=== PATIENT | female | born 1940 | race Caucasian/White ===

== ENCOUNTER → 2022-10-11 | Outpatient (CLI) | payer MEDICARE, OTHER ==
[~2022-10-11] MED LIST: ASPI81TA85 PO; LABE300T PO; LISI5TAB PO; MAPA500T17 PO; NORV2TAB PO; Statin
[2022-10-11 17:18] LABS: HEMATOCRIT 30.4 % (36.0-47.0); HEMOGLOBIN 9.9 g/dl (12.0-15.5); MEAN CORPUSCULAR HEMOGLOBIN 36.3 pg (27.0-33.0); MEAN CORPUSCULAR HGB CONC 32.6 g/dl (32.0-36.5); MEAN CORPUSCULAR VOLUME 111.4 fl (80.0-96.0); PLATELET COUNT, AUTOMATED 246 10^3/uL (150-450); RED BLOOD COUNT 2.73 10^6/uL (4.00-5.40); WHITE BLOOD COUNT 5.2 10^3/uL (4.0-10.0)
[2022-10-11 17:41] LABS: ALBUMIN 4.2 G/DL (3.2-5.2); BILIRUBIN,TOTAL 0.7 MG/DL (0.3-1.2); CALCIUM LEVEL 9.9 MG/DL (8.3-10.6); CHOLESTEROL RISK RATIO 3.55 (<5); CREATININE FOR GFR 1.04 MG/DL (0.55-1.30); GLOMERULAR FILTRATION RATE 53.7 (>32); HDL CHOLESTEROL 57.6 MG/DL (>40); LDL CHOLESTEROL 128.8 MG/DL (<100); NON-HDL-C 147.4 MG/DL; POTASSIUM SERUM 4.5 MMOL/L (3.5-5.1); TOTAL PROTEIN 6.9 G/DL (5.7-8.2)
[2022-10-11 17:56] LABS: ATYPICAL LYMPH 2 % (0-5); BASOPHILS 1 % (0-1); LYMPHOCYTES 46 % (16-44); METAMYELOCYTES 1 % (0-0); MONOCYTES 9 % (0-5); MYELOCYTES 3 % (0-0); NEUTROPHILS 34 % (28-66); PLATELET ESTIMATE NORMAL (NORMAL)
== END ==
LOC: M WUC 11:43
PROVIDERS: ATTEND Family Medicine
DX: I10 Essential (primary) hypertension (principal)

== ENCOUNTER → 2023-01-22 | Outpatient (CLI) | payer MEDICARE, OTHER ==
[2023-01-22 09:40] LABS: HEMOGLOBIN 9.6 g/dl (12.0-15.5); MEAN CORPUSCULAR HEMOGLOBIN 36.4 pg (27.0-33.0); MEAN CORPUSCULAR HGB CONC 33.1 g/dl (32.0-36.5); MEAN CORPUSCULAR VOLUME 109.8 fl (80.0-96.0); PLATELET COUNT, AUTOMATED 286 10^3/uL (150-450); RED BLOOD COUNT 2.64 10^6/uL (4.00-5.40); WHITE BLOOD COUNT 5.4 10^3/uL (4.0-10.0)
[2023-01-22 10:05] LABS: PERCENT SATURATION 32.2 % (13.2-45.0)
[2023-01-22 10:07] LABS: FERRITIN 380.3 NG/ML (7.3-270.7); FOLATE 18.1 NG/ML (>5.4)
[2023-01-22 10:19] LABS: ATYPICAL LYMPH 16 % (0-5); BASOPHILS 4 % (0-1); EOSINOPHILS 2 % (0-3); LYMPHOCYTES 23 % (16-44); MONOCYTES 10 % (0-5); NEUTROPHILS 45 % (28-66); PLATELET ESTIMATE NORMAL (NORMAL)
== END ==
LOC: M WUC 08:26
PROVIDERS: ATTEND Family Medicine
DX: D64.9 Anemia, unspecified (principal)

== ENCOUNTER 2023-11-19 11:22 | Observation (INO) | payer MEDICARE ==
[~2023-11-19] VITALS: Ht 170.2 cm; Wt 56.8 kg
[2023-11-19] VITALS (16 sets, daily range): BP systolic 134–211; BP diastolic 59–99; TEMP 98.5; O2SAT 95–99
[~2023-11-19 11:22] MED LIST changes: +AMLO1TAB25 PO; +HYDR12CA PO; +LISI40TA4 PO; +MULT-40 PO; +PROBCAP14 PO
[2023-11-19] MEDS ORDERED: ONDA-83 PO (11:31)
[2023-11-19] MEDS ORDERED: OXYC1TAB23 PO (11:31)
[2023-11-19 12:03] LABS: VENOUS BASE EXCESS 0.1 (-2.0-2.0); VENOUS O2 SATURATION 80.8 % (60.0-80.0); VENOUS PARTIAL PRESSURE CO2 41.7 mmHg (38.0-50.0); VENOUS PARTIAL PRESSURE O2 46.3 mmHg (30.0-50.0); VENOUS PH 7.396 UNITS (7.330-7.430); VENOUS STANDARD HCO3 24.3 MMOL/L; VENOUS TOTAL CO2 26.3 MMOL/L (24.0-28.0)
[2023-11-19 12:29] LABS: HEMATOCRIT 29.1 % (36.0-47.0); HEMOGLOBIN 9.9 g/dl (12.0-15.5); MEAN CORPUSCULAR HEMOGLOBIN 34.4 pg (27.0-33.0); PLATELET COUNT, AUTOMATED 396 10^3/uL (150-450); RED BLOOD COUNT 2.88 10^6/uL (4.00-5.40); WHITE BLOOD COUNT 8.6 10^3/uL (4.0-10.0)
[2023-11-19 12:40] LABS: ALKALINE PHOSPHATASE 104 U/L (46-116); ALT/SGPT 23 U/L (7.0-40); AST/SGOT 20 U/L (<34); BILIRUBIN,DIRECT 0.2 MG/DL (<0.4); BILIRUBIN,TOTAL 0.6 MG/DL (0.3-1.2); BLOOD UREA NITROGEN 10 MG/DL (9-23); CALCIUM LEVEL 9.7 MG/DL (8.3-10.6); CARBON DIOXIDE LEVEL 25 MMOL/L (20-31); CHLORIDE LEVEL 106 MMOL/L (98-107); CREATININE FOR GFR 0.75 MG/DL (0.55-1.30); GLOMERULAR FILTRATION RATE > 60.0 (>32); GLUCOSE, FASTING 169 MG/DL (74-106); SODIUM LEVEL 137 MMOL/L (136-145); TOTAL PROTEIN 6.1 G/DL (5.7-8.2)
[2023-11-19 12:42] LABS: THYROID STIMULATING HORMONE 3.416 uIU/ML (0.55-4.78); THYROXINE (T4) 12.5 UG/DL (4.5-10.9)
[2023-11-19] MEDS ORDERED: LEVALBUTEROL 1.25MG 0.5ML CONCENTRATE NEB NEB PRN (12:45)
[2023-11-19] MEDS ORDERED: KETOROLAC 30 MG/ML 1ML VIAL IV PRN (12:45)
[2023-11-19] MEDS ORDERED: ACETAMINOPHEN 325 MG TAB PO PRN (12:45)
[2023-11-19] MEDS ORDERED: PERCOCET 5MG/325MG TAB PO PRN (12:45)
[2023-11-19] MEDS ORDERED: ONDANSETRON 4MG 2ML VIAL IV PRN (12:45)
[2023-11-19] MEDS ORDERED: BISACODYL 10MG SUPP PR PRN (12:45)
[2023-11-19] MEDS ORDERED: HOME MED LIST COMPLETE! XX SCH (12:50)
[2023-11-19 12:51] LABS: PROCALCITONIN 0.08 ng/ml
[2023-11-19 13:04] LABS: ATYPICAL LYMPH 8 % (0-5); BASOPHILS 3 % (0-1); LYMPHOCYTES 21 % (16-44); MONOCYTES 5 % (0-5); NEUTROPHILS 59 % (28-66)
[2023-11-19 13:05] LABS: ANISOCYTOSIS 1+
[2023-11-19 13:07] LABS: PLATELET ESTIMATE NORMAL (NORMAL)
[2023-11-19] MEDS: ceFAZolin SOD 2 GM in IV 1 EA IV ONE (13:13)
[2023-11-19 13:31] LABS: LDH LACTATE DEHYDROGENASE 238 U/L (120-246)
[2023-11-19] MEDS ORDERED: flumazeniL 0.5MG/5ML VIAL As Ordered ONE (13:39)
[2023-11-19 14:08] LABS: VITAMIN B12 LEVEL 856 PG/ML (211-911)
[2023-11-19 14:11] LABS: FOLATE 12.69 NG/ML (>5.4)
[2023-11-19] MEDS: LEVALBUTEROL 1.25MG 0.5ML CONCENTRATE NEB NEB SCH (14:29)
[2023-11-19] MEDS: LIDOCAINE 1% MDV 20ML VIAL SC ONE (14:35)
[2023-11-19] MEDS: MIDAZOLAM INJ 2MG/2ML VIAL IV ONE (14:35)
[2023-11-19] MEDS: D5W/0.9% SODIUM CHLORIDE 1,000 ML IV SCH (14:36)
[2023-11-19] MEDS ORDERED: AMLO1TAB25 PO (15:02)
[2023-11-19 15:06] LABS: HEMOGLOBIN A1c 5.4 % (4.0-6.0)
[2023-11-19] MEDS: METOPROLOL 5 MG/5 ML VIAL IV ONE (15:08)
[2023-11-19] MEDS: hydrALAZINE 20MG/ML 1ML VIAL IV STA (15:08)
[2023-11-19] MEDS: KETOROLAC 30 MG/ML 1ML VIAL IV SCH (15:08)
[2023-11-19] MEDS ORDERED: ATIV1TAB10 PO (15:09)
[2023-11-19] MEDS ORDERED: MORP1SOL5 PO (15:09)
[2023-11-19] MEDS ORDERED: TRAN1DIS4 TOP (15:09)
[2023-11-19] MEDS ORDERED: HYOS125TA PO (15:09)
[2023-11-19 15:11] LABS: PH BODY FLUID 7.435 UNITS (NOT ESTABLISHED); SOURCE, BODY FLUID pH PLEURAL
[2023-11-19 15:17] LABS: APPEARANCE, BODY FLUID CLOUDY (CLEAR); PLEURAL FL COLOR PINK (COLORLESS); SOURCE, BODY FLUID PLEURAL
[2023-11-19 15:55] LABS: SOURCE, BODY FLUID ALBUMIN PLEURAL
[2023-11-19 16:00] LABS: SOURCE, BODY FLUID GLUCOSE PLEURAL; SOURCE, BODY FLUID TRIG PLEURAL; TRIGLYCERIDE, BODY FLUID 38 MG/DL (NOT ESTABLISHED)
[2023-11-19 16:01] LABS: SOURCE, BODY FLUID TOT PROTEIN PLEURAL; TOTAL PROTEIN, BODY FLUID 3.5 G/DL (NOT ESTABLISHED)
[2023-11-19 16:02] LABS: AMYLASE, BODY FLUID 71 U/L (NOT ESTABLISHED); SOURCE, BODY FLUID AMYLASE PLEURAL
[2023-11-19 16:03] LABS: CHOLESTEROL, BODY FLUID 63 MG/DL (NOT ESTABLISHED); SOURCE, BODY FLUID CHOL PLEURAL
[2023-11-19] MEDS ORDERED: ATROPINE SULFATE 1% OPHTH SOLN 2ML BTL SL PRN (16:10)
[2023-11-19] MEDS ORDERED: HYOSCYAMINE SULFATE 0.125 MG SUBL TABLET PO PRN (16:10)
[2023-11-19] MEDS ORDERED: SCOPOLAMINE 1MG TRANSDERMAL PATCH TOP PRN (16:10)
[2023-11-19] MEDS ORDERED: MORPHINE 10MG/0.5ML ORAL CONCENTRATE SOLUTION U/D SL PRN (16:10)
[2023-11-19] MEDS ORDERED: MORPHINE 2 MG/ML 1ML VIAL IV PRN (16:10)
[2023-11-19 16:12] LABS: LDH, BODY FLUID > 750 U/L (NOT ESTABLISHED); SOURCE, BODY FLUID LDH PLEURAL
[2023-11-19] MEDS: METOPROLOL TART 12.5 MG PER 1/2 TAB PO ONE (16:31)
[2023-11-19] MEDS: PERCOCET 5MG/325MG TAB PO PRN (17:44)
[2023-11-19] MEDS: METOPROLOL TART 12.5 MG PER 1/2 TAB PO SCH (17:46)
[2023-11-19] MEDS: DOCUSATE SODIUM 100MG CAPSULE PO SCH (21:00)
[2023-11-20 09:00] VITALS: BP 143/67
[2023-11-20] MEDS: PANTOPRAZOLE 40MG TAB (PROTONIX) PO SCH (09:00)
[2023-11-20] MEDS: MOM 30ML SUSPENSION UDC PO SCH (09:00)
[2023-11-20] MEDS: HEPARIN SOD (PORCINE) 5000UNITS/ML 1ML VIAL/SYRINGE SC SCH (09:00)
== END 2023-11-20 14:53 | disposition home or self-care (01) ==
LOC: M ED 11:22 → M ED INP 12:33 → INTOOBSV 12:33 → M PCU 13:06
PROVIDERS: ADMIT General Practice; ATTEND General Practice
DX: J96.01 Acute respiratory failure with hypoxia (principal); J91.0 Malignant pleural effusion; C80.1 Malignant (primary) neoplasm, unspecified; R59.0 Localized enlarged lymph nodes; J98.4 Other disorders of lung; I16.0 Hypertensive urgency; R54 Age-related physical debility; E78.5 Hyperlipidemia, unspecified; N18.30 Chronic kidney disease, stage 3 unspecified; R94.31 Abnormal electrocardiogram [ECG] [EKG]; I51.7 Cardiomegaly; I70.0 Atherosclerosis of aorta; D53.9 Nutritional anemia, unspecified; R06.00 Dyspnea, unspecified; R20.2 Paresthesia of skin; G62.9 Polyneuropathy, unspecified; E83.52 Hypercalcemia; Z98.41 Cataract extraction status, right eye; Z98.42 Cataract extraction status, left eye; Z90.711 Acquired absence of uterus with remaining cervical stump; Z87.891 Personal history of nicotine dependence; Z79.899 Other long term (current) drug therapy; Z79.891 Long term (current) use of opiate analgesic; Z66 Do not resuscitate; Z51.5 Encounter for palliative care
CPT/HCPCS: 32550; 71045; 71046; 71250; 80047; 80048; 80076; 82042; 82150; 82465; 82607; 82746; 82803; 82945; 83036; 83605; 83615; 83880; 83986; 84145; 84157; 84436; 84443; 84478; 85025; 87040; 87070; 87075; 87102; 87116; 87205; 87206; 87486; 87581; 87633; 87798; 88108; 88305; 88313; 89051; 93005; 93041; 94640; 94760; 96365; 96366; 96375; 96376; 99285; G0378; J0690; J1885; J2250